=== PATIENT | male | born 1955 | race Caucasian/White ===

== ENCOUNTER → 2018-03-16 | Outpatient (CLI) | payer BC ==
--- NOTE | 2018-03-16 08:18 | CTL ---
EXAMINATION TYPE: CT Low Dose Lung DATE OF EXAM ORDERED: 03/16/2018 HISTORY: . Lung cancer screening CT DLP: 145.[address] CTDI: 4.3 mGy Automated exposure control for dose reduction was used. SCREENING VISIT: Initial COMPARISON: None TECHNIQUE: Low dose computed tomography scan was performed through the chest at 1 mm thick sections a nd reconstructed images in the coronal plane at [address] DIAGNOSTIC QUALITY: Satisfactory FINDINGS: LUNG NODULES: None. There are couple of streak opacities adjacent to the major fissure at the lingul ar base, right middle lobe base at the diaphragm and in the dependent portion of the right lung base likely atelectasis. LUNGS: COPD: Severity: None Fibrosis: Severity: None Lymph nodes: None Other findings: None RIGHT PLEURAL SPACE: Effusion: None Calcification: None Thickening: None Pneumothorax: None LEFT PLEURAL SPACE: Effusion: None Calcification: None Thickening: None Pneumothorax: None HEART: Heart Size: Normal Coronary calcification: Moderate Pericardial effusion: None OTHER FINDINGS: Upper abdomen: Unremarkable Bony thorax: Normal Supraclavicular region: Normal Other: Ascending thoracic aorta at the main pulmonary artery is 4.0 cm. The main pulmonary artery the bifurcation is 3.3 cm. A few shotty lymph nodes are within the mediastinum. IMPRESSION: 1. No suspicious changes. 2. Ascending thoracic aortic aneurysm measuring 4.[address] CHEST RECOMMENDATION: Low dose screening per protocol CT LUNG RAD: Lung rad 1
== END | disposition home or self-care (01) ==
LOC: RADCTMAIN 06:47
PROVIDERS: ATTEND Internal Medicine Geriatric Medicine
DX: Z12.2 Encounter for screening for malignant neoplasm of respiratory organs (principal); I71.2 Thoracic aortic aneurysm, without rupture; Z87.891 Personal history of nicotine dependence

== ENCOUNTER → 2018-03-29 | Outpatient (CLI) | payer BC ==
--- NOTE | 2018-03-29 11:27 | US ---
EXAMINATION TYPE: US abdomen complete DATE OF EXAM: 03/29/2018 COMPARISON: NONE CLINICAL HISTORY: R94.5 abnormal liver function study. Patient on metformin and no symptoms, abn labs EXAM MEASUREMENTS: Liver Length: 19.6 cm Gallbladder Wall: 0.3 cm CBD: 0.6 cm Spleen: 12.4 cm Right Kidney: 10.9 x 6.1 x 6.7 cm Left Kidney: 13.5 x 6.0 x 7.3 cm large body habitus and bowel gas limits exam Pancreas: limited views only Liver: enlarged and difficult to penetrate . This most commonly relates to hepatic steatosis and clark its evaluation for underlying hepatic masses. Gallbladder: wnl Evidence for sonographic Cordoba's sign: no CBD: wnl Spleen: wnl Right Kidney: wnl Left Kidney: wnl Upper IVC: wnl Abd Aorta: limited views, some arthrosclerotic changes seen The intrahepatic portion of the IVC and proximal abdominal aorta are within normal limits. There is no evidence of cholelithiasis. Common bile duct is unremarkable. The visualized portions of the wylie creas are homogenous. The spleen is unremarkable. Kidneys are symmetric and free of hydronephrosis. No renal lesions are seen. IMPRESSION: Sonographic findings most commonly related to hepatic steatosis appearing at least modera te in degree. No sonographic evidence of cholelithiasis or acute cholecystitis.
[2018-03-29 17:49] LABS: Hepatitis A Antibody IgM Non-Reactive (Non-Reactive); Hepatitis B Core IgM Non-Reactive (Non-Reactive)
== END | disposition home or self-care (01) ==
LOC: RADUSWWP 08:51
PROVIDERS: ATTEND Internal Medicine Geriatric Medicine
DX: R94.5 Abnormal results of liver function studies (principal); R79.9 Abnormal finding of blood chemistry, unspecified
CPT/HCPCS: 76700; 80074